=== PATIENT | female | born 1975 | race Asian ===

== ENCOUNTER 2022-06-22 08:45 | Day surgery (SDC) | payer OTHER ==
[2022-06-22] MEDS ORDERED: LACTATED RINGERS 1,000 ML IV ONE ×2 (09:34→12:51)
[2022-06-22] MEDS ORDERED: ONDANSETRON 4 MG/2 ML VIAL IVP PRN ×2 (10:05→12:54)
[2022-06-22] MEDS ORDERED: ATROPINE ABBOJECT 1 MG/10 ML SYRINGE IVP PRN (10:05)
[2022-06-22] MEDS ORDERED: HYDROmorphone 0.5 MG/0.5 ML SYRINGE IVP PRN (10:05)
[2022-06-22] MEDS ORDERED: MORPHINE 2 MG/ML CARPUJECT IVP PRN (10:05)
[2022-06-22] MEDS ORDERED: NALOXONE 0.4 MG/ML VIAL IVP PRN (10:05)
[2022-06-22] MEDS ORDERED: METOCLOPRAMIDE 10 MG/2 ML VIAL IVP PRN (10:05)
[2022-06-22] MEDS ORDERED: ePHEDrine 50 MG/ML VIAL IVP PRN (10:05)
[2022-06-22] MEDS ORDERED: fentaNYL 100 MCG/2 ML VIAL IVP PRN (10:05)
--- NOTE | 2022-06-22 10:05 | ANESTHESIA ---
Pre-Anesthesia VS, & Labs - Diagnosis Lipoma, R abdominal wall, flank - Procedure excision lipoma, R abdominal wall, flank Vital Signs: Temp Pulse Resp BP Pulse Ox O2 Flow Rate 36.3 C L 86 18 132/91 H 98 06/22/22 09:11 06/22/22 09:11 06/22/22 09:11 06/22/22 09:11 06/22/22 09:11 Height: 5 ft 1 in Weight (kg): 66.6 kg Body Mass Index: 27.7 BMI Classification: Overweight - NPO >8 hours - Is Patient ?: No - Lab Results Lab results reviewed: Yes Home Medications and Allergies Home Medications: Ambulatory Orders Albuterol 2.5 mg INH Q6HR PRN 06/15/22 Albuterol Sulfate [Proair Respiclick] 2 puffs IH Q4H PRN 06/15/22 Cetirizine [ZyrTEC] 10 mg PO DAILY PRN 06/15/22 EPINEPHrine [Epinephrine] 0.3 mg IJ PRN PRN 06/15/22 Fluticasone/Salmeterol [Advair 250-50 Diskus] 1 each IH DAILY 06/15/22 Meloxicam [Mobic] 15 mg PO DAILY 06/15/22 Montelukast [Singulair] 10 mg PO QPM 06/15/22 Naproxen 500 mg PO PRN PRN 06/15/22 Topiramate 100 mg PO QPM 06/15/22 Zolmitriptan [Zomig] 5 mg PO PRN PRN 06/15/22 Albuterol 2.5 mg INH Q6HR PRN 06/15/22 Albuterol Sulfate [Proair Respiclick] 2 puffs IH Q4H PRN 06/15/22 Cetirizine [ZyrTEC] 10 mg PO DAILY PRN 06/15/22 EPINEPHrine [Epinephrine] 0.3 mg IJ PRN PRN 06/15/22 Fluticasone/Salmeterol [Advair 250-50 Diskus] 1 each IH DAILY 06/15/22 Meloxicam [Mobic] 15 mg PO DAILY 06/15/22 Montelukast [Singulair] 10 mg PO QPM 06/15/22 Naproxen 500 mg PO PRN PRN 06/15/22 Topiramate 100 mg PO QPM 06/15/22 Zolmitriptan [Zomig] 5 mg PO PRN PRN 06/15/22 Allergies/Adverse Reactions: Allergies Allergy/AdvReac Type Severity Reaction Status Date / Time acetaminophen Allergy migraines Verified 06/15/22 12:32 [From Tylenol PM] alcohol Allergy Anaphylaxis Verified 06/15/22 12:32 diphenhydramine Allergy migraines Verified 06/15/22 12:32 [From Tylenol PM] isopropyl alcohol Allergy Rash Verified 06/15/22 12:32 latex Allergy Rash Verified 06/15/22 12:32 loratadine Allergy migraines Verified 06/15/22 12:32 Anes History & Medical History - Anesthetic History Anesthesia Complications: reports: No previous complications Family history of Anesthesia Complications: Denies Family history of Malignant Hyperthermia: Denies - Medical History Cardiovascular: reports: Murmur Pulmonary: reports: Asthma, Sleep apnea, CPAP use Gastrointestinal: reports: None Urinary: reports: None Musculoskeletal: reports: Osteoarthritis Endocrine/Autoimmune: reports: None Skin: reports: Eczema History of Cancer?: No - Surgical History Eyes Ears Nose Throat (EENT): reports: Other Gynecologic: reports: Hysterectomy, Other Exam General: Alert, Oriented x3, Cooperative Dental: WNL Mouth Openin Fingerbreadth Neck Mobility: Normal Mallampati classification: III Thyromental Distance: 4-6 cm Respiratory: Lungs clear, Normal breath sounds, No respiratory distress Cardiovascular: Regular rate Neurological: Normal speech Mental/Cognitive Status: Alert/Oriented X3, Normal for patient Cognitive Status: Within normal limits Plan Anesthesia Type: General Consent for Procedure(s) Verified and Reviewed: Yes Code Status: Attempt Resuscitation ASA classification: 2-Mild systemic disease Is this case an emergency?: No
[2022-06-22] MEDS ORDERED: LIDOCAINE MPF 2%-EPI 1:200000 20 ML VIAL ONE (10:11)
[2022-06-22] MEDS ORDERED: MIDAZOLAM 2 MG/2 ML VIAL ONE (10:11)
[2022-06-22] MEDS ORDERED: PROPOFOL 200 MG/20 ML VIAL IVP ONE (10:12)
[2022-06-22] MEDS ORDERED: fentaNYL 100 MCG/2 ML VIAL ONE (10:12)
[2022-06-22] MEDS ORDERED: BUPIVACAINE 0.25% PF 10 ML VIAL ONE (10:12)
[2022-06-22] MEDS ORDERED: LACTATED RINGERS 1,000 ML IV SCH (11:00)
[2022-06-22] MEDS ORDERED: LIDOCAINE 2%-EPI 1:100000 20 ML MDV SUBQ ONE (11:49)
[2022-06-22] MEDS ORDERED: BUPIVACAINE 0.25% PF 10 ML VIAL SUBQ ONE (11:50)
[2022-06-22] MEDS ORDERED: LIDOCAINE-PF 2% 10 ML AMP SUBQ ONE (11:51)
--- NOTE | 2022-06-22 11:59 | HISTORY & PHYSICAL EXAMINATION ---
Chief Complaint - Chief Complaint Chief Complaint: painful lump right lower abdomen History of Present Illness - History Obtained From Records Reviewed: yes History obtained from: pt Exam Limitations: none - History of Present Illness HPI Comment/Other: growing and now large painful lipoma right lower flank History - Past Medical History Cardiovascular: reports: Murmur Respiratory: reports: Asthma, Sleep apnea, CPAP use Endocrine/Autoimmune: reports: None GI: reports: None : reports: None HEENT: reports: Chronic vision loss Psych: reports: None Musculoskeletal: reports: Osteoarthritis Derm: reports: Eczema MRSA Hx?: No - 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, Other HEENT: reports: Other Meds/Allgy - Home Medications Home Medications: Ambulatory Orders Medication Instructions Recorded Confirmed Albuterol 2.5 mg INH Q6HR PRN 06/15/22 06/15/22 Albuterol Sulfate [Proair 2 puffs IH Q4H PRN 06/15/22 06/15/22 Respiclick] Cetirizine [ZyrTEC] 10 mg PO DAILY PRN 06/15/22 06/15/22 EPINEPHrine [Epinephrine] 0.3 mg IJ PRN PRN 06/15/22 06/22/22 Fluticasone/Salmeterol [Advair 1 each IH DAILY 06/15/22 06/15/22 250-50 Diskus] Meloxicam [Mobic] 15 mg PO DAILY 06/15/22 06/15/22 Montelukast [Singulair] 10 mg PO QPM 06/15/22 06/15/22 Naproxen 500 mg PO PRN PRN 06/15/22 06/15/22 Topiramate 100 mg PO QPM 06/15/22 06/22/22 Zolmitriptan [Zomig] 5 mg PO PRN PRN 06/15/22 06/22/22 - Allergies Allergies/Adverse Reactions: Allergies Allergy/AdvReac Type Severity Reaction Status Date / Time acetaminophen Allergy migraines Verified 06/15/22 12:32 [From Tylenol PM] alcohol Allergy Anaphylaxis Verified 06/15/22 12:32 diphenhydramine Allergy migraines Verified 06/15/22 12:32 [From Tylenol PM] isopropyl alcohol Allergy Rash Verified 06/15/22 12:32 latex Allergy Rash Verified 06/15/22 12:32 loratadine Allergy migraines Verified 06/15/22 12:32 Review of Systems - Other Findings Other Findings: 10 pt ros as above otherwise unremarkable Exam - Vital Signs Reviewed Vital Signs: Yes Vital Signs: Vital Signs x48h Temp Pulse Resp BP Pulse Ox 06/22/22 09:11 36.3 C L 86 18 132/91 H 98 - Physical Exam General Appearance: positive: No acute distress, Alert Eyes Bilateral: positive: PERRL, EOMI ENT: positive: No signs of dehydration Neck: positive: No JVD, Trachea midline Respiratory: positive: No respiratory distress Cardiovascular: positive: Regular rate & rhythm Abdomen: positive: Non-tender, No distention, Other (right lower flank 6 x 12 cm lipoma) Neurologic/Psychiatric: positive: Oriented x3 Conclusion/Plan - Problem List (1) Lipoma of flank Conclusion/Plan: plan excision. parq held and consent obtained - Lab Results Lab results reviewed: Yes
[2022-06-22] MEDS ORDERED: DEXAMETHASONE 4 MG/ML VIAL ONE (12:15)
[2022-06-22] MEDS ORDERED: ONDANSETRON 4 MG/2 ML VIAL ONE (12:15)
[2022-06-22] MEDS ORDERED: HYDROcod/ACETAM 5/325 MG TABLET PO PRN (12:54)
--- NOTE | 2022-06-22 13:00 | OPERATIVE REPORT ---
Operative Report - General Procedure Date: 06/22/22 Planned Procedure: excision 6 x 12 cm right lower flank lipoma Pre-Op Diagnosis: large symptomatic flank lipoma Procedure Performed: excision 6 x 12 cm subcutaneous lipoma right flank 6 cm intermediate repair Post Op Diagnosis: same - Procedure Note Primary Surgeon: marilyn mclean Anesthesia Technique: General LMA, Local Pathology: benign not sent Estimated Blood Loss (mL): 2 Drain/Tube Type: Other (none) Indications: growing and painful lipoma Findings: as above Complications: none - Other Other Information/Narrative: The patient was properly identified brought to the operating room and placed in supine position. Laryngeal mask anesthesia was induced. She was carefully repositioned and padded left lateral decubitus. She was prepped and draped in a sterile fashion. Antibiotics were not given. An elliptical 6 cm incision was made in the direction of Neto's lines directly over the palpable mass. Dissection proceeded with cutting current cautery. The ellipse of skin and subcutaneous tissue was removed. The lipoma was removed with gentle retraction and use of cautery. Hemostasis was assured. Intermediate repair was then performed. Adipose tissue was closed in 2 layers with interrupted 2-0 Vicryl suture followed by interrupted 3-0 Vicryl suture. Buried interrupted subdermal 3-0 Vicryl sutures were then placed. Skin was closed with a running 4-0 Monocryl subcuticular suture. Steri-Strips and dressing were applied. She tolerated the procedure well was awakened and brought to recovery in good condition.
[2022-06-22 14:03] VITALS: BP 139/82
--- NOTE | 2022-06-22 14:45 | ANESTHESIA POST OP EVALUATION ---
Anesthesia Post Eval - Post Anesthesia Eval Vitals: Last Vital Signs Temp 36.8 C 06/22/22 14:02 Pulse 72 06/22/22 14:02 Resp 18 06/22/22 14:02 BP 139/82 H 06/22/22 14:02 Pulse Ox 98 06/22/22 14:02 O2 Flow Rate CV Function Including HR & BP: Stable Pain Control: Satisfactory Nausea & Vomiting: Negative Mental Status: Baseline Respiratory Status: Airway Patent Hydration Status: Satisfactory Anesthesia Complications: None
== END 2022-06-22 08:46 | disposition home or self-care (01) ==
LOC: SDS 08:45
PROVIDERS: ATTEND Surgery
PROC: 0JB80ZZ Excision of Abdomen Subcutaneous Tissue and Fascia, Open Approach (ICD-10-PCS; principal; 2022-06-22 10:30)
DX: D17.1 Benign lipomatous neoplasm of skin and subcutaneous tissue of trunk (principal); G47.30 Sleep apnea, unspecified; J45.909 Unspecified asthma, uncomplicated
CPT/HCPCS: 22903; J7120

== ENCOUNTER 2023-05-24 11:57 | Emergency (ER) | payer OTHER ==
[2023-05-24] MEDS ORDERED: BENZONATATE 100 MG CAPSULE PO STA (12:14)
[2023-05-24 12:15] VITALS: BP 156/108; O2SAT 98
--- NOTE | 2023-05-24 12:15 | ED Physician Documentation ---
PD HPI URI - Stated complaint Stated Complaint: COUGH,SORE THROAT - Chief complaint Chief Complaint: Heent - History obtained from History obtained from: Patient - Additional information Additional information: 48-year-old woman with history of asthma and heart murmur presents having been sick for several days with productive cough and sore throat. Stating that whenever this happens she gets a Z-Catarino to prevent pneumonia. [place] and flu which were negative. No fevers. PD PAST MEDICAL HISTORY - Past Medical History Cardiovascular: Murmur Respiratory: Asthma, Sleep apnea, CPAP use Endocrine/Autoimmune: None GI: None : None HEENT: Chronic vision loss Psych: None Musculoskeletal: Osteoarthritis Derm: Eczema - Past Surgical History /ANESTHESIA TECHNICIAN: Hysterectomy, Other HEENT: Other - Present Medications Home Medications: Ambulatory Orders Medication Instructions Recorded Confirmed Albuterol 2.5 mg INH Q6HR PRN 06/15/22 06/15/22 Albuterol Sulfate [Proair 2 puffs IH Q4H PRN 06/15/22 06/15/22 Respiclick] Cetirizine [ZyrTEC] 10 mg PO DAILY PRN 06/15/22 06/15/22 EPINEPHrine [Epinephrine] 0.3 mg IJ PRN PRN 06/15/22 06/22/22 Fluticasone/Salmeterol [Advair 1 each IH DAILY 06/15/22 06/15/22 250-50 Diskus] Meloxicam [Mobic] 15 mg PO DAILY 06/15/22 06/15/22 Montelukast [Singulair] 10 mg PO QPM 06/15/22 06/15/22 Naproxen 500 mg PO PRN PRN 06/15/22 06/15/22 Topiramate 100 mg PO QPM 06/15/22 06/22/22 ZOLMitriptan [Zomig] 5 mg PO PRN PRN 06/15/22 06/22/22 HYDROcod/ACETAM 5/325 [[place] 5/325] 1 each PO Q6H PRN #15 tablet 06/22/22 Benzonatate [Tessalon] 200 mg PO TID PRN #20 cap 05/24/23 guaiFENesin/CODEINE [Robitussin AC] 5 - 10 ml PO Q6H PRN #120 ml 05/24/23 - Allergies Allergies/Adverse Reactions: Allergies Allergy/AdvReac Type Severity Reaction Status Date / Time acetaminophen Allergy migraines Verified 05/24/23 12:07 [From Tylenol PM] alcohol Allergy Anaphylaxis Verified 05/24/23 12:07 diphenhydramine Allergy migraines Verified 05/24/23 12:07 [From Tylenol PM] isopropyl alcohol Allergy Rash Verified 05/24/23 12:07 latex Allergy Rash Verified 05/24/23 12:07 loratadine Allergy migraines Verified 05/24/23 12:07 PD ED PE NORMAL - Vitals Vital signs reviewed: Yes - General General: Alert and oriented X 3, Other (Frequent coughing) - HEENT HEENT: Ears normal, Pharynx benign - Cardiac Cardiac: RRR - Respiratory Respiratory: No respiratory distress, Clear bilaterally - Abdomen Abdomen: Non tender - Derm Derm: No rash Results - Vitals Vitals: Vital Signs - 24 hr 05/24/23 12:05 Temperature 36.4 C L Heart Rate 92 Respiratory 20 Rate Blood Pressure 156/108 H O2 Saturation 98 Oxygen O2 Source Room air - Rads (name of study) Single view chest x-ray is unremarkable Relevant Findings:: Final report received, EMP independent interpretation of test PD Medical Decision Making - ED course ED course: 48-year-old woman with viral URI requesting Z-Catarino. Discussed with her that this would not likely be appropriate unless chest x-ray findings are positive. Departure - Departure Disposition: Home, Self Care Clinical Impression: Viral respiratory infection Condition: Good Record reviewed to determine appropriate education?: Yes Instructions: ED Viral Syndrome Prescriptions: guaiFENesin/CODEINE [Robitussin AC] 5 - 10 ml PO Q6H PRN #120 ml PRN Reason: Cough Benzonatate [Tessalon] 200 mg PO TID PRN #20 cap PRN Reason: Cough Comments: You have a viral illness, there is no evidence of pneumonia and therefore a Z- Catarino would not be appropriate, it would only expose you to side effects without helping you. I am prescribing 2 medications for the cough. With the codeine- containing cough syrup do not drink or drive with it. I sent your prescription electronically to the [facility] [place] if worsening or if new symptoms develop. Follow-up with your physician on Sunday or Sunday if not improved. Forms: Activity restrictions
--- NOTE | 2023-05-24 12:29 | XRAY Report ---
PROCEDURE: Chest 1 View X-Ray INDICATIONS: cough TECHNIQUE: One view of the chest was acquired. COMPARISON: None. FINDINGS: Surgical changes and devices: None. Lungs and pleura: No pleural effusions or pneumothorax. Lungs are clear. Mediastinum: Mediastinal contours appear normal. Heart size is normal. Bones and chest wall: No suspicious bony lesions. Overlying soft tissues appear unremarkable. IMPRESSION: No acute cardiopulmonary process. Reviewed by: Donnell Morales MD on 05/24/2023 12:27 PM PDT Approved by: Donnell Morales MD on 05/24/2023 12:27 PM PDT Station ID: [id number]
== END 2023-05-24 12:40 | disposition home or self-care (01) ==
LOC: ED 11:57
DX: J06.9 Acute upper respiratory infection, unspecified (principal)
CPT/HCPCS: 71045; 99283; 99284; A9270